=== PATIENT | male | born 1995 | race Caucasian/White ===

== ENCOUNTER 2017-06-18 22:48 | Emergency (ER) | payer BC ==
[~2017-06-18] VITALS: Ht 172.7 cm; Wt 66.2 kg
[2017-06-18 22:50] VITALS: TEMP 36.9; Ht 172.7 cm; Wt 66.2 kg
[2017-06-18] MEDS ORDERED: SULF800T23 PO (23:06)
[2017-06-18] MEDS ORDERED: CEPH500C PO (23:06)
[2017-06-18] MEDS ORDERED: CEPHALEXIN 500MG HOME PACK 1 EA BTL PO ONE (23:15)
[2017-06-18] MEDS ORDERED: SEPTRA DS HOME PACK 1 EA VIAL PO ONE (23:15)
[2017-06-18 23:19] VITALS: BP 133/76; PULSE 104; O2SAT 98
--- NOTE | 2017-06-18 23:54 | EMERGENCY ROOM VISIT NOTE ---
History First contact with patient: 22:55 Chief Complaint: LACERATION/CUT (SUT/DERMABOND) Stated Complaint: CUT ON CHIN,SEEMS INFECTED Nursing Triage Summary: laceration to chin. happened last night History of Present Illness The patient is a 21 year old male who presents to the Emergency Room with complaints of pain in his chin worsening over the past 12 hours. Patient states that he fell last night, and scraped his chin on the ground. He had some very mild bleeding but no distinct laceration. He washed the wound at home. He states over the course of the day he has had some slowly worsening pain and drainage from the chin. The patient is reportedly up-to-date on his tetanus. He has not taken anything [id number] for his pain which he rates a 4/10. No other injuries reported. Review of Systems More than 10 systems were reviewed and otherwise negative with the exception of history of present illness. Past Medical/Surgical History No chronic medical disease Family History No pertinent family history Social History Smoking Status: Never Smoker Occupation Status: [employer] Current/Historical Medications Scheduled Cephalexin Monohydrate (Keflex), 500 MG PO TID Sulfa/Trimethoprim (Bactrim Ds 800MG/160MG), 1 TAB PO BID Physical Exam Vital Signs Date Time Temp Pulse Resp B/P (MAP) Pulse Ox O2 Delivery O2 Flow Rate FiO2 06/18/17 23:19 104 18 133/76 98 06/18/17 22:50 36.9 104 18 133/76 98 Room Air Physical Exam VITALS: Vitals are noted on the nurse's note and reviewed by myself. Vital signs stable. GENERAL: Well-developed, well-nourished, white male, who is in no acute distress and resting comfortably. Patient is cooperative with the examination. MOUTH: Mucous membranes moist. Tonsils are not enlarged. Pharynx without erythema, blood, or exudate. Uvula midline. Airway patent. NECK: Supple without nuchal rigidity. No lymphadenopathy. No thyromegaly. Cervical spine is nontender. HEART: Regular rate and rhythm without murmurs gallops or rubs. LUNGS: Clear to auscultation bilaterally without wheezes, rales or rhonchi. No retractions or accessory muscle use. SKIN: The skin was with a 3 cm diameter circular abrasion over the left side chin. There is some induration and erythema. No distinct abscess or drainage for culture. This does appear to be infected. Medical Decision & Procedures Medications Administered Medications (Trade) Dose Ordered Sig/Messi Route Start Time Stop Time Status Last Admin Dose Admin Trimethoprim/ Sulfamethoxazole (Sulfameth/ Trimeth Ds 800/ 160MG Home Pack) 1 homepack UD ONCE PO 06/18/17 23:15 06/18/17 23:16 DC 06/18/17 23:18 1 HOMEPACK Cephalexin Monohydrate (Keflex 500MG Home Pack) 1 homepack NOW ONCE PO 06/18/17 23:15 06/18/17 23:16 DC 06/18/17 23:18 1 HOMEPACK ED Course Physical exam and history were performed. Nursing notes, EMR, and Medication List were personally reviewed. Patient appears to have an abrasion over his chin from last evening. This appears to be acutely infected. The patient was started on Bactrim and Keflex here in the department. He will be given a continuation prescription of these medications. He was given conservative care instructions and otherwise invited back to the ER with any new, worsening, or concerning symptoms. The chart was completed utilizing [employer] Voice Recognition Software. Grammatical errors, random word insertions, pronoun errors, and incomplete sentences are an occasional consequence of this system due to software limitations, ambient noise, and hardware issues. Any formal questions or concerns about the content, text, or information contained within the body of this dictation should be directly addressed to the provider for clarification. . Medical Decision Differential diagnosis: Etiologies such as cellulitis, abscess, MRSA infection, DVT, necrotizing fasciitis, dermatitis, drug eruption, as well as others were entertained.. Impression Primary Impression: Infected abrasion of chin Departure Information Dispostion Home / Self-Care Condition GOOD Prescriptions Cephalexin Monohydrate (Keflex) 500 Mg Cap 500 MG PO TID for 9 Days, #27 CAP Prov: Kevon Mike PA-C 06/18/17 Sulfa/Trimethoprim (Bactrim Ds 800MG/160MG) Tab 1 TAB PO BID for 9 Days, #18 TAB Prov: Kevon Mike PA-C 06/18/17 Referrals No Doctor, Assigned Forms HOME CARE DOCUMENTATION FORM, IMPORTANT VISIT INFORMATION Patient Instructions [facility] Additional Instructions You were seen and evaluated today on an emergency basis only. This is not a substitute for, or an effort to provide, complete comprehensive medical care. It is not possible to recognize and treat all injuries or illnesses in a single emergency department visit. For this reason it is recommended that you followup with your primary care physician/[facility] this week for recheck of your condition. For baseline pain relief you may alternate ibuprofen and acetaminophen every 4 hours for pain control. Take 600 mg ibuprofen (Advil) and then 4 hours later take 1000 mg acetaminophen (Tylenol). Do not take more than 3000 mg acetaminophen in a single day. Trimethoprim-Sulfamethoxazole(Bactrim DS): Take one pill twice daily for 10 days for your skin infection. All antibiotics can cause diarrhea. If this occurs and you feel worse or it does not resolve in 1-2 days follow up with your doctor or return to the Emergency Department as this could be signs of serious underlying problems. Any medication can cause an allergic reaction, stop the pills immediately and return to the ER for rash, hives, breathing difficulties, or swelling. Cephalexin(Keflex) 500mg: Take one pill 3 times daily for 10 days for your skin infection. All antibiotics can cause diarrhea. If this occurs and you feel worse or it does not resolve in 1-2 days follow up with your doctor or return to the Emergency Department as this could be signs of serious underlying problems. Any medication can cause an allergic reaction, stop the pills immediately and return to the ER for rash, hives, breathing difficulties, or swelling. You are welcome to return to the emergency department anytime with new, worsening, or concerning symptoms.
== END 2017-06-18 23:20 | disposition home or self-care (01) ==
LOC: C.EDB 22:50 → C.EDC 23:20
DX: S00.81XA Abrasion of other part of head, initial encounter (principal); L08.9 Local infection of the skin and subcutaneous tissue, unspecified; W19.XXXA Unspecified fall, initial encounter; Y92.9 Unspecified place or not applicable